=== PATIENT | female | born 1955 | race Caucasian/White ===

== ENCOUNTER 2020-04-23 13:22 | Observation (INO) ==
[2020-04-23] MEDS ORDERED: *HR* FentaNYL (PF) 100 MCG/2 ML VIAL IVP ONE ×2 (13:39→15:06)
[2020-04-23 14:25] LABS: Basophils % 0.3 %; Eosinophils # 0.1 K/mcL (0.0-0.6); Hematocrit 44.6 % (35.3-44.9); Hemoglobin 14.8 g/dL (11.5-15.4); Immature Granulocytes % 0.3 % (0-4); Lymphocytes # 0.7 K/mcL (0.6-4.6); Lymphocytes % 5.5 %; Mean Corpuscular HGB Conc 33.2 g/dL (31.6-35.5); Mean Corpuscular Hemoglobin 30.1 pg (28.0-33.3); Mean Corpuscular Volume 90.8 fL (83.0-100.0); Mean Platelet Volume 11.4 fL (9.4-12.4); Monocytes # 0.8 K/mcL (0.0-1.3); Neutrophils # 11.6 K/mcL (1.6-8.9); Platelet Count 215 K/mcL (140-400); Red Blood Count 4.91 M/mcL (3.82-4.97); Red Cell Distribution Width 12.9 % (11.5-14.5); Segmented Neutrophils % 86.9 %; White Blood Count 13.4 K/mcL (4.3-11.1)
[2020-04-23 14:43] LABS: Calcium 9.5 mg/dL (8.6-10.3); Potassium 3.5 mEq/L (3.5-5.1)
[2020-04-23] MEDS ORDERED: Naloxone 0.4 MG/ML INJ IVP PRN (16:13)
[2020-04-23] MEDS ORDERED: Acetaminophen 325 MG TABLET PO PRN (16:32)
[2020-04-23] MEDS ORDERED: Ipratropium/Albuterol Neb 3 ML IH PRN (16:52)
[2020-04-23] MEDS ORDERED: 0.9 % Sodium Chloride 1,000 ML IVC SCH (17:00)
[2020-04-23] MEDS: *HR* HYDROcodone/Acet 5/325 mg TABLET PO PRN (18:14)
[2020-04-23] MEDS ORDERED: Acetaminophen IV 1,000 MG/100 ML BAG IVPB ONE (19:00)
[2020-04-23 21:41] LABS: Bacteria,Urine Few per hpf (None-Few); Bilirubin,Urine Negative (Negative); Blood,Urine Small (Negative); Clarity,Urine Turbid (Clear); Color,Urine Light-Yellow (Yellow); Glucose,Urine (UA) Normal (Normal); Ketones,Urine Negative (Negative); Leukocyte Esterase,Urine Small (Negative); Mucus,Urine Few per lpf (None-Few); Nitrite,Urine Negative (Negative); PH,Urine 6.5 pH Units (5.0-8.0); Protein,Urine 200 mg/dL (Neg-Trace); Specific Gravity,Urine 1.017 (1.010-1.025); Squamous Epithelial Cell,Urine Moderate per hpf (None-Few); Urobilinogen,Urine Normal (Normal)
[2020-04-23 22:14] LABS: Protein/Creatinine Ratio,Urine 4.95 mg/mg (0.00-0.20); Sodium, Urine 93.6 mEq/L
[2020-04-23] MEDS: Budesonide/Formoterol 80/4.5 1 PUFF INH IH SCH (23:37)
[2020-04-24] MEDS ORDERED: *HR* Labetalol 20 MG/4 ML SYRINGE IVP ONE (00:09)
[2020-04-24 01:20] LABS: Basophils % 0.4 %; Eosinophils # 0.1 K/mcL (0.0-0.6); Eosinophils % 0.6 %; Hematocrit 42.7 % (35.3-44.9); Hemoglobin 14.3 g/dL (11.5-15.4); Immature Granulocytes % 0.2 % (0-4); Lymphocytes # 1.3 K/mcL (0.6-4.6); Mean Corpuscular HGB Conc 33.5 g/dL (31.6-35.5); Mean Corpuscular Hemoglobin 30.7 pg (28.0-33.3); Mean Corpuscular Volume 91.6 fL (83.0-100.0); Mean Platelet Volume 11.6 fL (9.4-12.4); Monocytes % 11.2 %; Neutrophils # 6.7 K/mcL (1.6-8.9); Platelet Count 187 K/mcL (140-400); Red Blood Count 4.66 M/mcL (3.82-4.97); Red Cell Distribution Width 12.9 % (11.5-14.5); Segmented Neutrophils % 73.6 %; White Blood Count 9.1 K/mcL (4.3-11.1)
[2020-04-24 01:36] LABS: Calcium 8.8 mg/dL (8.6-10.3); Potassium 3.7 mEq/L (3.5-5.1)
[2020-04-24] MEDS: *HR* HYDROcodone/Acet 5/325 mg TABLET PO PRN ×3 (03:43→17:08)
[2020-04-24] MEDS: Gabapentin 100 MG CAPSULE PO SCH ×3 (08:04→21:35)
[2020-04-24] MEDS: Metoprolol XL (24 HR) Succ 50 MG TAB.ER.24H PO SCH (08:04)
[2020-04-24] MEDS: Budesonide/Formoterol 80/4.5 1 PUFF INH IH SCH ×2 (10:53→22:45)
[2020-04-24] MEDS: *HR* Heparin 5,000 UNIT/ML VIAL SQ SCH (17:08)
[2020-04-25] MEDS: *HR* HYDROcodone/Acet 5/325 mg TABLET PO PRN (01:23)
[2020-04-25 04:56] LABS: Calcium 9.1 mg/dL (8.6-10.3); Potassium 3.3 mEq/L (3.5-5.1)
[2020-04-25] MEDS: *HR* Heparin 5,000 UNIT/ML VIAL SQ SCH (06:42)
[2020-04-25] MEDS: Budesonide/Formoterol 80/4.5 1 PUFF INH IH SCH (07:40)
[2020-04-25] MEDS: Metoprolol XL (24 HR) Succ 50 MG TAB.ER.24H PO SCH (08:51)
[2020-04-25] MEDS: Gabapentin 100 MG CAPSULE PO SCH ×2 (08:52→16:46)
[2020-04-25] MEDS ORDERED: amLODIPine 5 MG TABLET PO SCH (09:00)
[2020-04-25 10:26] LABS: Uric Acid 6.4 mg/dL (2.3-7.6)
[2020-04-25 13:08] VITALS: BP 159/87
== END 2020-04-25 17:15 | disposition home or self-care (01) ==
LOC: EMEROOARM 13:22 → 3NENU 13:22 → SUATTDRO 15:32 → 3NENU 16:41
PROVIDERS: ADMIT Internal Medicine; ATTEND Internal Medicine

== ENCOUNTER 2021-08-30 13:44 | Inpatient (IN) ==
[2021-08-30] MEDS ORDERED: 0.9 % Sodium Chloride 1,000 ML IVC ONE (14:14)
[2021-08-30 14:29] LABS: Basophils % 0.1 %; Eosinophils % 0.1 %; Hemoglobin 13.9 g/dL (11.5-15.4); Immature Granulocytes % 0.5 % (0-4); Lymphocytes # 0.8 K/mcL (0.6-4.6); Lymphocytes % 3.9 %; Mean Corpuscular HGB Conc 33.1 g/dL (31.6-35.5); Mean Corpuscular Hemoglobin 29.9 pg (28.0-33.3); Mean Platelet Volume 10.9 fL (9.4-12.4); Monocytes # 1.2 K/mcL (0.0-1.3); Monocytes % 6.1 %; Neutrophils # 17.3 K/mcL (1.6-8.9); Platelet Count 323 K/mcL (140-400); Red Blood Count 4.65 M/mcL (3.82-4.97); Red Cell Distribution Width 12.1 % (11.5-14.5); Segmented Neutrophils % 89.3 %; White Blood Count 19.3 K/mcL (4.3-11.1)
[2021-08-30 14:32] LABS: Mean Corpuscular Volume 90.3 fL (83.0-100.0)
[2021-08-30] MEDS ORDERED: *HR* Labetalol 20 MG/4 ML SYRINGE IVP ONE ×2 (14:34→15:52)
[2021-08-30 14:37] LABS: INR 1.1
[2021-08-30 14:40] LABS: Activated Partial Thrombo Time 31.2 Seconds (26.0-36.0)
[2021-08-30 15:07] LABS: Alanine Aminotransferase 23 Units/L (7-52); Albumin/Globulin Ratio 1.3 (1.1-2.2); Alkaline Phosphatase 94 Units/L (34-104); Aspartate Amino Transferase 31 Units/L (13-39); BUN/Creatinine Ratio 23 (6-26); Bilirubin,Direct 0.1 mg/dL (0.0-0.2); Bilirubin,Indirect 0.3 mg/dL (0.0-1.0); Bilirubin,Total 0.4 mg/dL (0.3-1.0); Blood Urea Nitrogen 46 mg/dL (8-23); Calcium 9.1 mg/dL (8.6-10.3); Carbon Dioxide 27 mEq/L (23-29); Chloride 99 mEq/L (98-107); Ethanol < 10 mg/dL (Less than 10); Globulin 3.1 g/dL (2.4-3.5); Glucose 142 mg/dL (70-105); Osmolality,Calculated 300 (280-300); Potassium 3.6 mEq/L (3.5-5.1); Sodium 138 mEq/L (136-145); Total Protein 7.1 g/dL (6.4-8.9); eGFR For African Americans 30 (> 60); eGFR For Non-African Americans 25 (> 60)
[2021-08-30 15:22] LABS: Influenza A PCR Negative (Negative); Influenza B PCR Negative (Negative); Resp. Syncytial Virus PCR Negative (Negative)
[2021-08-30] MEDS ORDERED: cefTRIAXone 1,000 MG in 0.9 % Sodium Chloride 10 ML IVP ONE (15:35)
[2021-08-30 15:59] LABS: Amorphous Sediment,Urine Few per hpf (None-Few); Bacteria,Urine Few per hpf (None-Few); Bilirubin,Urine Negative (Negative); Blood,Urine Large (Negative); Clarity,Urine Clear (Clear); Color,Urine Yellow (Yellow); Glucose,Urine (UA) Normal (Normal); Ketones,Urine Negative (Negative); Leukocyte Esterase,Urine Negative (Negative); Mucus,Urine Few per lpf (None-Few); Nitrite,Urine Negative (Negative); PH,Urine 6.5 pH Units (5.0-8.0); Protein,Urine >=600 mg/dL (Neg-Trace); Squamous Epithelial Cell,Urine Few per hpf (None-Few); Urobilinogen,Urine Normal (Normal)
[2021-08-30 16:23] LABS: SARS-CoV-2 by PCR (In House) Negative (Negative)
[2021-08-30 17:07] LABS: Amphetamine Screen,Urine Negative ng/mL (Cutoff=1000); Barbiturate Screen,Urine Negative ng/mL (Cutoff=200); Benzodiazepines Screen,Urine Negative ng/mL (Cutoff=200); Cannabinoid Screen,Urine Positive ng/mL (Cutoff = 50); Cocaine Screen,Urine Negative ng/mL (Cutoff= 300); Opiate Screen,Urine Negative ng/mL (Cutoff=300); Phencyclidine Screen,Urine Negative ng/mL (Cutoff=25)
[2021-08-30] MEDS: niCARdipine 20 MG/200 ML MLS IVC SCH (18:46)
[2021-08-30] MEDS ORDERED: 0.9 % Sodium Chloride 500 ML IVC ONE (19:30)
[2021-08-30] MEDS ORDERED: Naloxone 0.4 MG/ML INJ IVP PRN (19:37)
[2021-08-30] MEDS ORDERED: Melatonin 3 MG TABLET PO PRN (19:37)
[2021-08-30] MEDS ORDERED: Famotidine 20 MG TABLET PO SCH (21:00)
[2021-08-30 21:03] LABS: Magnesium 1.6 mg/dL (1.6-2.6); Phosphorous 3.5 mg/dL (2.7-4.5)
[2021-08-30] MEDS: 0.9 % Sodium Chloride 1,000 ML IVC SCH (21:33)
[2021-08-30] MEDS ORDERED: Ampicillin 1,000 MG in 0.9 % Sodium Chloride Mini Bag 100 ML IVPB SCH (22:09)
[2021-08-30] MEDS: Dexamethasone Sodium Phos/PF 10 MG/ML VIAL IVP SCH (22:49)
[2021-08-30 22:58] LABS: VBG HCO3 23 mEq/L (21-27); VBG PCO2 30 mmHg (41-51); VBG PH 7.49 pH Units (7.32-7.42); VBG PO2 220 mmHg (25-50)
[2021-08-30] MEDS ORDERED: Vancomycin 1 EACH in 0.9 % Sodium Chloride 250 ML IVPB PRN (23:00)
[2021-08-30] MEDS: Ipratropium/Albuterol Neb 3 ML IH SCH (23:01)
[2021-08-30] MEDS: Budesonide/Formoterol 160/4.5 1 PUFF INH IH SCH (23:01)
[2021-08-30] MEDS: Lactobacillus 1 EACH CAP.SPRINK PO SCH (23:06)
[2021-08-31] MEDS: niCARdipine 20 MG/200 ML MLS IVC SCH ×5 (00:32→21:37)
[2021-08-31] MEDS: Acyclovir 500 MG in D5% in Water 250 ML IVPB SCH (00:36)
[2021-08-31] MEDS: Ampicillin 2,000 MG in 0.9 % Sodium Chloride Mini Bag 100 ML IVPB SCH ×3 (02:17→15:52)
[2021-08-31] MEDS ORDERED: *HR* Metoprolol 5 MG/5 ML VIAL IVP ONE ×3 (02:38→16:31)
[2021-08-31 03:28] LABS: Basophils % 0.1 %; Hematocrit 39.1 % (35.3-44.9); Hemoglobin 12.9 g/dL (11.5-15.4); Immature Granulocytes % 0.6 % (0-4); Lymphocytes # 0.6 K/mcL (0.6-4.6); Lymphocytes % 3.9 %; Mean Corpuscular Hemoglobin 29.9 pg (28.0-33.3); Mean Corpuscular Volume 90.5 fL (83.0-100.0); Mean Platelet Volume 11.5 fL (9.4-12.4); Monocytes # 0.2 K/mcL (0.0-1.3); Neutrophils # 15.2 K/mcL (1.6-8.9); Platelet Count 258 K/mcL (140-400); Red Blood Count 4.32 M/mcL (3.82-4.97); Segmented Neutrophils % 94.4 %; White Blood Count 16.1 K/mcL (4.3-11.1)
[2021-08-31] MEDS: Ipratropium/Albuterol Neb 3 ML IH SCH ×4 (03:45→21:49)
[2021-08-31 03:47] LABS: Potassium 3.4 mEq/L (3.5-5.1)
[2021-08-31] MEDS: *HR* Heparin 5,000 UNIT/ML VIAL SQ SCH ×3 (05:10→20:07)
[2021-08-31] MEDS: Dexamethasone Sodium Phos/PF 10 MG/ML VIAL IVP SCH ×4 (05:10→23:08)
[2021-08-31] MEDS: Lactobacillus 1 EACH CAP.SPRINK PO SCH (08:21)
[2021-08-31] MEDS: 0.9 % Sodium Chloride 1,000 ML IVC SCH (08:29)
[2021-08-31] MEDS: cefTRIAXone 2,000 MG in 0.9 % Sodium Chloride 20 ML IVP SCH ×2 (08:58→22:02)
[2021-08-31] MEDS ORDERED: cefTRIAXone 2,000 MG in 0.9 % Sodium Chloride Mini Bag 100 ML IVPB SCH (09:00)
[2021-08-31] MEDS ORDERED: Buprenorphine Hcl/Naloxone Hcl 8-2MG SL SCH (09:00)
[2021-08-31] MEDS: *HR* Buprenorphine HCl 8 MG TAB.SUBL SL SCH (09:34)
[2021-08-31] MEDS: Budesonide/Formoterol 160/4.5 1 PUFF INH IH SCH ×2 (10:19→21:51)
[2021-08-31] MEDS: Ondansetron 4 MG/2 ML VIAL IVP PRN ×2 (11:41→18:32)
[2021-08-31] MEDS: Thiamine (B-1) 100 MG in 0.9 % Sodium Chloride 50 ML IVPB SCH (15:14)
[2021-08-31 16:24] LABS: Adenovirus Not Detected (Not Detect); Bordetella Pertussis Not Detected (Not Detect); Chlamydophila pneumoniae Not Detected (Not Detect); Coronavirus 229E Not Detected (Not Detect); Coronavirus HKU1 Not Detected (Not Detect); Coronavirus NL63 Not Detected (Not Detect); Coronavirus OC43 Not Detected (Not Detect); Human Metapneumovirus Not Detected (Not Detect); Human Rhinovirus/Enterovirus Not Detected (Not Detect); Influenza A Subtype 2009 H1 Not Detected (Not Detect); Influenza B Not Detected (Not Detect); Mycoplasma pneumoniae Not Detected (Not Detect); Parainfluenza Virus 1 Not Detected (Not Detect); Parainfluenza Virus 2 Not Detected (Not Detect); Parainfluenza Virus 3 Not Detected (Not Detect); Parainfluenza Virus 4 Not Detected (Not Detect); Respiratory Syncytial Virus Not Detected (Not Detect); SARS-CoV-2 Not Detected (Not Detect)
[2021-08-31] MEDS ORDERED: *HR* Metoprolol 5 MG/5 ML VIAL IVP PRN (16:37)
[2021-08-31] MEDS: Metoprolol XL (24 HR) Succ 50 MG TAB.ER.24H PO SCH (16:53)
[2021-08-31 17:12] LABS: Folate 11.7 ng/mL (3.0-16.0)
[2021-08-31] MEDS: Famotidine 20 MG TABLET PO SCH (20:10)
[2021-08-31] MEDS ORDERED: Metoprolol XL (24 HR) Succ 50 MG TAB.ER.24H PO SCH (21:00)
[2021-09-01] MEDS: Ampicillin 2,000 MG in 0.9 % Sodium Chloride Mini Bag 100 ML IVPB SCH ×2 (00:27→07:58)
[2021-09-01] MEDS: Acyclovir 500 MG in D5% in Water 250 ML IVPB SCH (01:11)
[2021-09-01] MEDS: niCARdipine 20 MG/200 ML MLS IVC SCH ×3 (01:21→10:55)
[2021-09-01] MEDS ORDERED: Ipratropium/Albuterol Neb 3 ML IH PRN (01:36)
[2021-09-01] MEDS: Dexamethasone Sodium Phos/PF 10 MG/ML VIAL IVP SCH ×2 (04:12→10:39)
[2021-09-01 05:03] LABS: Basophils % 0.1 %; Hematocrit 36.6 % (35.3-44.9); Hemoglobin 11.7 g/dL (11.5-15.4); Immature Granulocytes % 0.7 % (0-4); Lymphocytes # 0.9 K/mcL (0.6-4.6); Lymphocytes % 5.1 %; Mean Corpuscular Hemoglobin 29.8 pg (28.0-33.3); Mean Corpuscular Volume 93.1 fL (83.0-100.0); Mean Platelet Volume 11.4 fL (9.4-12.4); Monocytes # 0.4 K/mcL (0.0-1.3); Monocytes % 2.4 %; Neutrophils # 15.6 K/mcL (1.6-8.9); Platelet Count 230 K/mcL (140-400); Red Blood Count 3.93 M/mcL (3.82-4.97); Red Cell Distribution Width 12.3 % (11.5-14.5); Segmented Neutrophils % 91.7 %
[2021-09-01 05:23] LABS: Potassium 3.9 mEq/L (3.5-5.1)
[2021-09-01] MEDS: *HR* Heparin 5,000 UNIT/ML VIAL SQ SCH ×3 (05:36→22:10)
[2021-09-01] MEDS: Metoprolol XL (24 HR) Succ 50 MG TAB.ER.24H PO SCH ×2 (07:55→21:02)
[2021-09-01] MEDS: Budesonide/Formoterol 160/4.5 1 PUFF INH IH SCH ×2 (07:55→20:23)
[2021-09-01] MEDS: Lactobacillus 1 EACH CAP.SPRINK PO SCH (07:56)
[2021-09-01] MEDS: *HR* Buprenorphine HCl 8 MG TAB.SUBL SL SCH (07:56)
[2021-09-01] MEDS: cefTRIAXone 2,000 MG in 0.9 % Sodium Chloride 20 ML IVP SCH (07:56)
[2021-09-01] MEDS ORDERED: QUEtiapine Fumarate 25 MG TABLET PO PRN (08:01)
[2021-09-01] MEDS ORDERED: *HR* Buprenorphine HCl 8 MG TAB.SUBL SL SCH (09:00)
[2021-09-01] MEDS: Thiamine (B-1) 100 MG in 0.9 % Sodium Chloride 50 ML IVPB SCH (11:22)
[2021-09-01] MEDS: 0.9 % Sodium Chloride 1,000 ML IVC SCH (11:29)
[2021-09-01] MEDS: hydrALAZINE 25 MG TABLET PO SCH ×2 (14:15→21:01)
[2021-09-01] MEDS: cloNIDine HCL 0.1 MG TABLET PO SCH ×2 (14:15→21:03)
[2021-09-01] MEDS ORDERED: niCARdipine 20 MG/200 ML MLS IVC SCH (14:45)
[2021-09-01] MEDS: Famotidine 20 MG TABLET PO SCH (21:02)
[2021-09-02 02:13] LABS: Hematocrit 31.7 % (35.3-44.9); Mean Corpuscular HGB Conc 31.9 g/dL (31.6-35.5); Mean Corpuscular Hemoglobin 29.6 pg (28.0-33.3); Mean Platelet Volume 11.4 fL (9.4-12.4); Platelet Count 203 K/mcL (140-400); Red Blood Count 3.41 M/mcL (3.82-4.97); Red Cell Distribution Width 12.4 % (11.5-14.5); White Blood Count 17.2 K/mcL (4.3-11.1)
[2021-09-02 02:16] LABS: Hemoglobin 10.1 g/dL (11.5-15.4)
[2021-09-02 02:25] LABS: Calcium 7.7 mg/dL (8.6-10.3); Potassium 3.7 mEq/L (3.5-5.1)
[2021-09-02] MEDS: *HR* Heparin 5,000 UNIT/ML VIAL SQ SCH ×3 (05:30→20:46)
[2021-09-02] MEDS: Acetaminophen 325 MG TABLET PO PRN ×2 (06:42→20:44)
[2021-09-02] MEDS: Budesonide/Formoterol 160/4.5 1 PUFF INH IH SCH ×2 (07:35→20:17)
[2021-09-02] MEDS: predniSONE 20 MG TABLET PO SCH (08:04)
[2021-09-02] MEDS: Metoprolol XL (24 HR) Succ 50 MG TAB.ER.24H PO SCH ×2 (08:05→20:45)
[2021-09-02] MEDS: *HR* Buprenorphine HCl 8 MG TAB.SUBL SL SCH (08:05)
[2021-09-02] MEDS: cloNIDine HCL 0.1 MG TABLET PO SCH ×3 (08:05→20:45)
[2021-09-02] MEDS: Lactobacillus 1 EACH CAP.SPRINK PO SCH (08:05)
[2021-09-02] MEDS: hydrALAZINE 25 MG TABLET PO SCH ×3 (08:05→20:46)
[2021-09-02] MEDS: cefTRIAXone 2,000 MG in 0.9 % Sodium Chloride 20 ML IVP SCH (08:06)
[2021-09-02] MEDS: Thiamine (B-1) 100 MG in 0.9 % Sodium Chloride 50 ML IVPB SCH (09:29)
[2021-09-02] MEDS ORDERED: niCARdipine 20 MG/200 ML MLS IVC SCH (10:05)
[2021-09-02] MEDS: Spironolactone 25 MG TABLET PO SCH (14:50)
[2021-09-02] MEDS: Famotidine 20 MG TABLET PO SCH (20:45)
[2021-09-03] MEDS ORDERED: NIFEdipine Immed Rel 10 MG CAPSULE PO ONE (01:30)
[2021-09-03 02:25] LABS: Hematocrit 30.7 % (35.3-44.9); Hemoglobin 10.1 g/dL (11.5-15.4); Mean Corpuscular HGB Conc 32.9 g/dL (31.6-35.5); Mean Corpuscular Hemoglobin 30.7 pg (28.0-33.3); Mean Corpuscular Volume 93.3 fL (83.0-100.0); Mean Platelet Volume 11.4 fL (9.4-12.4); Platelet Count 186 K/mcL (140-400); Red Blood Count 3.29 M/mcL (3.82-4.97); Red Cell Distribution Width 12.2 % (11.5-14.5); White Blood Count 9.6 K/mcL (4.3-11.1)
[2021-09-03 02:47] LABS: Calcium 7.3 mg/dL (8.6-10.3); Potassium 3.3 mEq/L (3.5-5.1)
[2021-09-03] MEDS: *HR* Heparin 5,000 UNIT/ML VIAL SQ SCH ×3 (05:29→21:02)
[2021-09-03] MEDS: predniSONE 20 MG TABLET PO SCH (08:28)
[2021-09-03] MEDS: *HR* Buprenorphine HCl 8 MG TAB.SUBL SL SCH (08:29)
[2021-09-03] MEDS: cefTRIAXone 2,000 MG in 0.9 % Sodium Chloride 20 ML IVP SCH (08:29)
[2021-09-03] MEDS: cloNIDine HCL 0.1 MG TABLET PO SCH ×3 (08:29→20:59)
[2021-09-03] MEDS: Lactobacillus 1 EACH CAP.SPRINK PO SCH (08:29)
[2021-09-03] MEDS: hydrALAZINE 25 MG TABLET PO SCH ×3 (08:29→20:59)
[2021-09-03] MEDS: Metoprolol XL (24 HR) Succ 50 MG TAB.ER.24H PO SCH ×2 (08:29→21:00)
[2021-09-03] MEDS: Spironolactone 25 MG TABLET PO SCH (08:29)
[2021-09-03] MEDS: Thiamine (B-1) 100 MG in 0.9 % Sodium Chloride 50 ML IVPB SCH (08:30)
[2021-09-03] MEDS: Budesonide/Formoterol 160/4.5 1 PUFF INH IH SCH ×2 (10:38→19:57)
[2021-09-03] MEDS: Famotidine 20 MG TABLET PO SCH (21:00)
[2021-09-04] MEDS ORDERED: NIFEdipine Immed Rel 10 MG CAPSULE PO ONE (01:13)
[2021-09-04] MEDS: *HR* Heparin 5,000 UNIT/ML VIAL SQ SCH ×3 (05:38→21:15)
[2021-09-04] MEDS ORDERED: CloNIDine Patch 0.2 MG PATCH (WEEKLY) TD SCH (07:45)
[2021-09-04] MEDS: Lactobacillus 1 EACH CAP.SPRINK PO SCH (08:01)
[2021-09-04] MEDS: cloNIDine HCL 0.1 MG TABLET PO SCH ×3 (08:01→20:38)
[2021-09-04] MEDS: hydrALAZINE 25 MG TABLET PO SCH ×3 (08:01→20:39)
[2021-09-04] MEDS: *HR* Buprenorphine HCl 8 MG TAB.SUBL SL SCH (08:01)
[2021-09-04] MEDS: Metoprolol XL (24 HR) Succ 50 MG TAB.ER.24H PO SCH ×2 (08:01→20:39)
[2021-09-04] MEDS: predniSONE 20 MG TABLET PO SCH (08:01)
[2021-09-04] MEDS: Budesonide/Formoterol 160/4.5 1 PUFF INH IH SCH ×2 (09:05→20:41)
[2021-09-04] MEDS: Thiamine (B-1) 100 MG in 0.9 % Sodium Chloride 50 ML IVPB SCH (09:18)
[2021-09-04 09:32] LABS: Hematocrit 32.8 % (35.3-44.9); Hemoglobin 10.7 g/dL (11.5-15.4); Mean Corpuscular HGB Conc 32.6 g/dL (31.6-35.5); Mean Corpuscular Volume 91.9 fL (83.0-100.0); Mean Platelet Volume 12.2 fL (9.4-12.4); Platelet Count 165 K/mcL (140-400); Red Blood Count 3.57 M/mcL (3.82-4.97); Red Cell Distribution Width 12.2 % (11.5-14.5); White Blood Count 10.4 K/mcL (4.3-11.1)
[2021-09-04 09:51] LABS: Calcium 7.6 mg/dL (8.6-10.3); Potassium 3.6 mEq/L (3.5-5.1)
[2021-09-04] MEDS ORDERED: Cefdinir 300 MG CAPSULE PO SCH (11:27)
[2021-09-04] MEDS: Famotidine 20 MG TABLET PO SCH (20:38)
[2021-09-05] MEDS: *HR* Heparin 5,000 UNIT/ML VIAL SQ SCH ×3 (05:21→20:45)
[2021-09-05 07:21] LABS: Calcium 7.7 mg/dL (8.6-10.3); Potassium 4.2 mEq/L (3.5-5.1)
[2021-09-05] MEDS: hydrALAZINE 25 MG TABLET PO SCH ×3 (08:58→20:39)
[2021-09-05] MEDS: Lactobacillus 1 EACH CAP.SPRINK PO SCH (08:58)
[2021-09-05] MEDS: predniSONE 20 MG TABLET PO SCH (08:59)
[2021-09-05] MEDS: *HR* Buprenorphine HCl 8 MG TAB.SUBL SL SCH (08:59)
[2021-09-05] MEDS: Thiamine (B-1) 100 MG TABLET PO SCH (08:59)
[2021-09-05] MEDS: Metoprolol XL (24 HR) Succ 50 MG TAB.ER.24H PO SCH ×2 (08:59→20:38)
[2021-09-05] MEDS: cloNIDine HCL 0.1 MG TABLET PO SCH ×3 (08:59→20:39)
[2021-09-05] MEDS: Acetaminophen 325 MG TABLET PO PRN (09:05)
[2021-09-05] MEDS: Budesonide/Formoterol 160/4.5 1 PUFF INH IH SCH ×2 (10:36→22:51)
[2021-09-05] MEDS ORDERED: CloNIDine Patch 0.3 MG PATCH (WEEKLY) TD SCH (11:45)
[2021-09-05] MEDS: Famotidine 20 MG TABLET PO SCH (20:40)
[2021-09-06 03:50] LABS: Potassium 4.6 mEq/L (3.5-5.1)
[2021-09-06] MEDS: *HR* Heparin 5,000 UNIT/ML VIAL SQ SCH ×2 (05:39→14:41)
[2021-09-06] MEDS: Acetaminophen 325 MG TABLET PO PRN (05:40)
[2021-09-06 06:57] VITALS: TEMP 97.7
[2021-09-06] MEDS: Budesonide/Formoterol 160/4.5 1 PUFF INH IH SCH (07:36)
[2021-09-06] MEDS ORDERED: Spironolactone 25 MG TABLET PO SCH (09:00)
[2021-09-06] MEDS ORDERED: cloNIDine HCL 0.1 MG TABLET PO ONE (09:00)
[2021-09-06] MEDS: predniSONE 20 MG TABLET PO SCH (09:04)
[2021-09-06] MEDS: Lactobacillus 1 EACH CAP.SPRINK PO SCH (09:05)
[2021-09-06] MEDS: hydrALAZINE 25 MG TABLET PO SCH ×2 (09:05→14:41)
[2021-09-06] MEDS: Metoprolol XL (24 HR) Succ 50 MG TAB.ER.24H PO SCH (09:06)
[2021-09-06] MEDS: Thiamine (B-1) 100 MG TABLET PO SCH (09:06)
[2021-09-06] MEDS: *HR* Buprenorphine HCl 8 MG TAB.SUBL SL SCH (09:06)
[2021-09-06 09:09] VITALS: PULSE 59
[2021-09-06 11:16] VITALS: O2SAT 92
[2021-09-06 15:02] VITALS: BP 140/56
[2021-09-07 12:18] LABS: ANA HEp-2 IgG IFA <1:80 (<1:80)
[2021-09-07 13:02] LABS: Anti Fibrillarin U3 RNP NEGATIVE (Negative); Anti PM Scl EIA NEGATIVE (Negative); Anti RNA Polymerase III 7 Units (0-19)
== END 2021-09-06 15:21 | disposition home or self-care (01) | DRG 281 ==
LOC: 2NENU 13:44 → EMEROOARM 13:44 → 2NENU 20:20 → SUATTDRO 22:27
PROVIDERS: ADMIT Family Medicine; ATTEND Internal Medicine